=== PATIENT | male | born 1990 | race Caucasian/White ===

== ENCOUNTER 2018-11-01 00:40 | Outpatient (CLI) | payer BC, SELFPAY ==
--- NOTE | 2018-11-01 14:01 | DI.US_ITS ---
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 The right testicle measures 4.6 x 2.4 x 3.1 cm. It is homogeneous with normal blood flow. No intratesticular mass or torsion is identified. The right epididymis is unremarkable. The left testicle measures 4.0 x 2.3 x 2.6 cm. It is homogeneous in echogenicity with normal blood flow. No evidence of an intratesticular mass or torsion is seen. The left epididymis is unremarkable except for a 3 mm epididymal head cyst/spermatocele. There are prominent veins bilaterally with Valsalva measuring up to 3.3 mm. IMPRESSION: 1. No evidence of an intratesticular mass or torsion. 2. A 3 mm left epididymal cyst/spermatocele. 3. Findings suggestive of bilateral varicoceles.
== END 2018-11-01 01:00 ==
PROVIDERS: PCP Internal Medicine; Visit Provider Internal Medicine
DX: N50.9 Disorder of male genital organs, unspecified (principal); N50.3 Cyst of epididymis; I86.1 Scrotal varices
CPT/HCPCS: 76870

== ENCOUNTER 2019-08-21 19:27 | Emergency (ER) | payer BC, SELFPAY ==
[2019-08-21 19:30] VITALS: BP 128/73; PULSE 63; RESP 16; TEMP 36.3; O2SAT 95
--- NOTE | 2019-08-21 19:30 | DI.RAD_ITS ---
EXAM: XR HAND RT COMPLETE INDICATION: pain, injury. COMPARISON: No exams were available for comparison TECHNIQUE: 2D digital imaging was performed. FINDINGS: There does appear to be a nondisplaced transverse fracture through the base of the 2nd metacarpal bon e. This appears best on the AP view. No other fracture or dislocation is seen. The soft tissues ar e unremarkable. IMPRESSION: Findings suspicious for a nondisplaced fracture involving the base of the 2nd metacarpal.
--- NOTE | 2019-08-21 20:08 | DI.VRAD_ITS ---
Addendum created by Axel Tompkins DO on 08/21/2019 8:42:06 PM EST Case discussed with PA Sabra Gopal. Reportedly, patient has point tenderness at base of the 2nd metacarpal. Subtle transverse linear lucency is demonstrated on frontal view, superimposed on base of the 2nd metacarpal which may be due to superimposition or nondisplaced fracture. Orthopedic follow-up recommended. Initial report created on 08/21/2019 8:07:35 PM EST PROCEDURE INFORMATION: Exam: XR Right Hand Exam date and time: 08/21/2019 7:51 PM Age: 29 years old Clinical indication: Hand; Right; Patient HX: Pain, bent back and pain after TECHNIQUE: Imaging protocol: XR Right hand. Views: 3 or more views. COMPARISON: No relevant prior studies available. FINDINGS: Bones/joints: Normal. Soft tissues: Normal. IMPRESSION: No acute findings. Dictated and Authenticated by: Axel Tompkins MD. Ordering:RIVERA Bui MD
--- NOTE | 2019-08-21 21:35 | NUR.NOTE ---
R hand splint applied by WING Lawrence. +csm.
--- NOTE | 2019-08-22 00:11 | W.ED.GENAD ---
Discharge Plan Disposition Patient Disposition: HOME Condition: Stable Discharge Details Chief Complaint: Orthopedic Clinical Impression: Hand contusion Primary Care Provider: Marianne De La Rosa ED Provider: Ramya Lawrence Home Meds and New Rx's Prescriptions: No Action escitalopram oxalate [Lexapro] 20 mg tablet 20 mg PO DAILY Qty: 90 RF: 3 Discharge Instructions Instructions: Hand Fracture (ED), Contusion in Adults (ED) Additional Instructions: Rest. Activities as tolerated. Keep splint clean, dry and intact Elevate injury to prevent swelling. Ice to the area of discomfort for 15 min. 3-5 times daily. Motrin every 8 hours with food or Tylenol every 6 hours for soreness if needed over the counter for comfort. Followup with orthopedic doctor as discussed for repeat imaging Return for any worsening or concerns sooner if needed. Referrals: Jarad Bhakta MD [ [facility] STAFF PHYSICIAN] - Discharge Data Discharge Date/Time-TO BE ENTERED AT DEPARTURE: 08/21/19 21:35 HPI General Date/Time Provider Initiated Documentation: 08/21/19 19:33. HPI Narrative: Is a 29-year-old patient presenting to the emergency room for right hand injury. Patient injured right hand prior to arrival he fell backwards landing on his right hand behind him. Patient presents with an area of swelling and ecchymosis noted to the dorsal aspect of his hand. Patient denies striking head neck or back. Patient denies any other sites of concern or injuries. Patient concerned with the possibility of fracture in the hand. Denies associated numbness, tingling or weakness. No other concerns or complaints at this time. On exam patient has no focal elbow pain, forearm pain or wrist pain with palpation. No snuffbox tenderness elicited. Patient does have focal area of ecchymosis and swelling in the dorsal aspect of the hand near the base of the second metacarpal. Flexion extension intact throughout all digits. No focal weakness. Sensation intact distally. X-ray read is unremarkable however my review of patient's x-ray revealed a concern for hand fracture. I did speak with the [facility] radiologist who agrees there is some concern and if clinical concern is present patient should be splinted appropriately and repeat x-rays Patient splinted in a volar splint. Rice encouraged, orthopedic referral provided for reevaluation and re-x-ray in approximately 1 week. Patient reports his understanding and agrees with plan of care. The patient was stable and requested discharge. Prior to discharge, my usual and customary return precautions were reviewed with the patient - this included follow-up instructions and reasons to return to the Emergency Department if conditions worsens, does not improve as expected, or other new concerns arise. Related Data Home Medications Medication Instructions Recorded Confirmed escitalopram oxalate 20 mg tablet 20 mg PO DAILY #90 tab 06/07/19 08/21/19 Previous Rx's Medication Instructions Recorded escitalopram oxalate 20 mg tablet 20 mg PO DAILY #90 tab 06/07/19 Allergies Allergy/AdvReac Type Severity Reaction Status Date / Time No Known Drug Allergies Allergy Verified 06/07/19 10:36 General Stated Complaint: Orthopedic PAM: 4 PFSH Family History Father Alcohol abuse Personal history of malignant neoplasm lung, throat, colon, diagnosed with CA ~ 55 Mother Alcohol abuse Social History (Updated 06/07/19 @ 10:47 by Hallie Washburn LPN) Smoking/Tobacco Use Status: Current every day Tobacco Type: e-cigarettes Smokeless tobacco user: other Alcohol Intake: current Alcohol Intake frequency: a few times a week Drug use: Never Substance use type: does not use Housing: apartment Number of Children: 1 Communication Needs: None 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 Current gender identity: male What is your relationship status?: living with partner Panel score (0-1 are the most socially isolated patients): 1 What type of physical activity do you participate in: none Seatbelt use: always Drive intox or ride w/intox winch driver: No Working smoke detector in home: Yes Carbon monox detector in home: Yes Do you feel safe at home: Yes Do you feel safe in your relationship?: Yes Course Vital Signs Vital signs: Vital Signs Temperature 36.3 C L 08/21/19 19:30 Pulse 63 08/21/19 19:30 Respiratory Rate 16 08/21/19 19:30 Blood Pressure 128/73 08/21/19 19:30 Pulse Oximetry 95 08/21/19 19:30 Temperature 36.3 C L 08/21/19 19:30 Temperature Source Skin 08/21/19 19:30 Pulse 63 08/21/19 19:30 Respiratory Rate 16 08/21/19 19:30 Respiratory Effort 08/21/19 19:32 Blood Pressure 128/73 08/21/19 19:30 Blood Pressure Position Sitting 08/21/19 19:30 Pulse Oximetry 95 08/21/19 19:30 Oxygen Delivery Method Room Air 08/21/19 19:30 Oxygen Flow Rate 0 08/21/19 19:30 Pain Level 6 08/21/19 19:30 Procedures Orthopedic Splinting/Casting Injury #1: Side: right Upper Extremity Injury Location: hand Upper Extremity Immobilizer: volar splint
== END 2019-08-21 21:35 | disposition home or self-care (01) ==
PROVIDERS: Emergency Provider Physician Assistant; PCP Internal Medicine
DX: S60.221A Contusion of right hand, initial encounter (principal); W01.0XXA Fall on same level from slipping, tripping and stumbling without subsequent striking against object, initial encounter
CPT/HCPCS: 29125; 99284; 73130; 99283

== ENCOUNTER 2019-09-06 15:29 | Outpatient (CLI) | payer BC, SELFPAY ==
--- NOTE | 2019-09-06 15:00 | DI.RAD_ITS ---
EXAM: XR WRIST RT COMPL NAVICULAR CLINICAL HISTORY: R hand injury. TECHNIQUE: 2D digital imaging was performed. COMPARISON: XR HAND RT COMPLETE from 08/21/2019 FINDINGS: BONES: There is again seen a nondisplaced fracture through the base of the 2nd metacarpal. No bony d estructive lesion is seen. JOINTS: The carpal bones are normally aligned. SOFT TISSUE: Normal. IMPRESSION: Nondisplaced fracture involving the base of the 2nd metacarpal. DATA REPOSITORY: RADIATION DOSE DELIVERED:
== END 2019-09-06 15:49 ==
PROVIDERS: PCP Internal Medicine; Visit Provider Physician Assistant
DX: M79.641 Pain in right hand (principal); S62.340D Nondisplaced fracture of base of second metacarpal bone, right hand, subsequent encounter for fracture with routine healing
CPT/HCPCS: 73110

== ENCOUNTER 2021-04-08 04:04 | Outpatient (CLI) | payer OTHER, SELFPAY ==
[2021-04-08 18:38] LABS: ALT 70 U/L (16-63); AST 41 U/L (15-37); Albumin 4.7 g/dL (3.4-5.0); Alkaline Phosphatase 182 U/L (46-116); Anion Gap 10.5 mmol/L (3-11); BUN 13 mg/dL (7-18); Bilirubin, Total 1.9 mg/dL (0.2-1.0); CO2 28.5 mmol/L (21.0-32.0); Calcium 9.7 mg/dL (8.5-10.1); Calculated LDL 96 mg/dL (<100); Chloride 100 mmol/L (98-107); Cholesterol 199 mg/dL (<200); Glucose 94 mg/dL (74-106); HDL Cholesterol 89 mg/dL (40-60); Potassium 3.5 mmol/L (3.5-5.1); Sodium 139 mmol/L (136-145); Total Protein 7.4 g/dL (6.4-8.2); Triglyceride 71 mg/dL (<150)
[2021-04-10 09:16] LABS: HBs Antibody, Quant 768.5 mIU/mL (See Note); Hepatitis B Surface Ab Positive (See Note)
[2021-04-10 09:31] LABS: Hepatitis B Surface Ag Negative (Negative)
[2021-04-10 10:03] LABS: HIV-1/2 Ag & Ab Screen Negative (Negative)
[2021-04-10 10:09] LABS: Hepatitis C Ab w Rflx HCV PCR Negative (Negative)
[2021-04-10 10:41] LABS: Varicella IgG Antibody Positive (See Note)
== END 2021-04-08 04:05 | disposition home or self-care (01) ==
LOC: LBO 04:05
PROVIDERS: PCP Internal Medicine; Visit Provider Internal Medicine
DX: E78.00 Pure hypercholesterolemia, unspecified; Z11.4 Encounter for screening for human immunodeficiency virus [HIV]; Z11.59 Encounter for screening for other viral diseases; Z13.220 Encounter for screening for lipoid disorders; F10.21 Alcohol dependence, in remission; Z23 Encounter for immunization
CPT/HCPCS: 36415; 80053; 80061; 86706; 86787; 86803; 87340; 87389